=== PATIENT | male | born 1950 | race Caucasian/White ===

== ENCOUNTER → 2017-02-18 | Day surgery (SDC) | payer MEDICARE ==
[~2017-02-18] VITALS: Ht 180.3 cm; Wt 93.0 kg
[~2017-02-18] MED LIST: BUPIVACAINE HCL PF 0.5% 30 ML VIAL ONE; CARD4TAB2 PO; CEPH-460 PO; HYDR-3288 PO; IBUP-232 PO; LACTATED RINGER'S 1000 ML INJ 1,000 ML ONE; LEVA250T PO; LEVOFLOXACIN 500 MG PREMIX INJ 100 ML IV ONE; LIDOCAINE HCL 2% 50 ML VIAL ONE; MULTTAB67 PO; NEOMYCIN/POLYMYXIN 1 ML G.U. IRRIGANT TOPICAL ONE; NORC5TAB PO; OMEP20TA PO; PROPOFOL 200 MG/20 ML AMP IV ONE; ceFAZolin INJ 1,000 MG VIAL ONE
[2017-02-18 09:43] VITALS: BP 164/106; PULSE 63; RESP 20; TEMP 97.5; O2SAT 96
[2017-02-18 09:47] LABS: HEMATOCRIT 52.6 % (39.0-51.0); MEAN CELL VOLUME 89.5 FL (80.0-100.0); MEAN CORPUSCULAR HEMOGLOBIN 29.2 PG (27.0-34.0); MEAN CORPUSCULAR HGB CONC 32.6 % (32.0-36.0); PLATELET COUNT 176 TH/MM3 (150-450); RED BLOOD COUNT 5.88 MIL/MM3 (4.50-5.90); RED CELL DISTRIBUTION WIDTH 13.7 % (11.6-17.2); REVIEW FLAG FINAL; WHITE BLOOD COUNT 5.5 TH/MM3 (4.0-11.0)
[2017-02-18 11:45] VITALS: TEMP 98.3
[2017-02-18 12:35] VITALS: BP 133/79; PULSE 55; RESP 16; O2SAT 95
--- NOTE | 2017-02-18 12:37 | MP ---
cc: JEANMARIE PINEDA III, M.D. DATE OF SURGERY: 02/18/2017 PREOPERATIVE DIAGNOSIS Left carpal tunnel syndrome. POSTOPERATIVE DIAGNOSIS Left carpal tunnel syndrome. PROCEDURE Left open carpal tunnel release. SURGEON Jeanmarie Pineda III, MD INDICATION The patient was known to have a scratch and surrounding erythema on his right index finger in the pre-op holding area. He was scheduled for a right open carpal tunnel release but because of this wound and possible infection I cancelled this case. The patient then requested we proceed with left open carpal tunnel release if deemed possible as this was the next step in his treatment plan which would have been scheduled in four weeks. I thought this would be very reasonable and there was no evidence of any wound or infection in the left upper extremity, and therefore we proceeded in this fashion. DETAILS OF PROCEDURE The patient was brought to the operating room and placed supine on the operating table. After the correct site and side of surgery were verified by members of each team in the room multiple times including the patient and myself and after adequate preoperative markings and preoperative written consent were verified by everyone and after adequate IV sedation had been achieved, the left upper extremity was prepped and draped in traditional sterile surgical fashion. A 50/50 mixture of 2% plain lidocaine and 0.5% plain Marcaine was infiltrated in the skin and subcutaneous tissue at the base of the palm. The limb was exsanguinated using Jj wrap and a highly placed well-padded axillary tourniquet was inflated to 220 mmHg for a total of 10 minutes. A longitudinally oriented incision within the skin creases at the base of the palm was made and carried down through skin and subcutaneous tissue. The palmar fascia was retracted in opposite directions. The transverse carpal ligament was identified and divided in its midline from its proximal most to its distal most extents, completely freeing the carpal tunnel contents. The median nerve was visualized and appeared to be completely intact and in continuity but had an obvious rebound once the carpal tunnel was released. There were no other anatomic abnormalities identified. There was no evidence of any mass effect. A liter's worth of saline was then performed to irrigate out the wound was the skin edges were re-approximated using running 4-0 nylon suture. The hand and arm were thoroughly cleansed and dried. Betadine/Adaptic dressing was applied atop the wound followed by a bulky soft dressing. The axillary tourniquet was released and the hand and all the fingers became immediately soft, pink and warm and had brisk capillary refill of less than two seconds. The patient was awakened from anesthesia and transported to the post-anesthesia care unit awake and in stable condition at the end of the case. The sponge, needle and instrument counts were correct at the end of the case as reported by the nurses in the room. MD BESS Roblero III/FLORY /11:50 AM /12:17 PM
--- NOTE | 2017-02-19 17:41 | EKG ---
Date Performed: 02/18/2017 Time Performed: 09:46:18 PTAGE: 66 years EKG: Sinus bradycardia. Inferior infarct - age undetermined QRS changes V3/V4 may be due to LVH but cannot rule out anterior infarct Abnormal ECG PREVIOUS TRACING : 04/29/2011 13.08 Compared to prior tracing no significant change DOCTOR: Vaughn Chávez Interpretating Date/Time 02/19/2017 17:40:20
== END | disposition home or self-care (01) ==
LOC: PHSDC 08:34
PROVIDERS: ATTEND Orthopaedic Surgery Hand Surgery
DX: G56.02 Carpal tunnel syndrome, left upper limb (principal); I10 Essential (primary) hypertension; K21.9 Gastro-esophageal reflux disease without esophagitis; Z87.891 Personal history of nicotine dependence
CPT/HCPCS: 36415; 64721; 85027; 93005; J0690; J1956; J7120

== ENCOUNTER → 2017-03-04 | Day surgery (SDC) | payer MEDICARE ==
[~2017-03-04] VITALS: Ht 180.3 cm; Wt 93.0 kg
[~2017-03-04] MED LIST changes: +BUPIVACAINE HCL PF 0.5% 10 ML VIAL OTHER ONE; -BUPIVACAINE HCL PF 0.5% 30 ML VIAL ONE; -HYDR-3288 PO; -LEVA250T PO; -LEVOFLOXACIN 500 MG PREMIX INJ 100 ML IV ONE; -LIDOCAINE HCL 2% 50 ML VIAL ONE; +LIDOCAINE HCL PF 2% VIAL OTHER ONE; +MIDAZOLAM HCL 2 MG/2 ML VIAL ONE; +NEOMYCIN/POLYMYXIN 1 ML G.U. IRRIGANT IRRIGATION ONE; -NEOMYCIN/POLYMYXIN 1 ML G.U. IRRIGANT TOPICAL ONE; -PROPOFOL 200 MG/20 ML AMP IV ONE; +SODIUM CHLORIDE 0.9% INJ 100 ML ONE
[2017-03-04 11:07] VITALS: BP 143/97; PULSE 60; RESP 18; TEMP 97; O2SAT 95
[2017-03-04 13:12] VITALS: PULSE 64
--- NOTE | 2017-03-04 13:43 | MP ---
cc: JEANMARIE PINEDA III, M.D. DATE OF SURGERY 03/04/2017 PREOPERATIVE DIAGNOSIS Right carpal tunnel syndrome PROCEDURE Right open carpal tunnel release. SURGEON Jeanmarie Pineda III, MD PROCEDURE The patient was brought to the operating room and placed supine upon the operating table. After the correct site and side of the surgery were verified by the members of each team in the room multiple times including the patient and myself and, after adequate preoperative markings and preoperative written consent were verified by everyone and, after adequate preoperative time-out was performed to everyone's satisfaction, and after adequate IV sedation had been achieved, the right upper extremity was prepped and draped in the traditional sterile surgical fashion. A 50/50 mixture of 2% plain lidocaine and 0.5% plain Marcaine was infiltrated in the skin and subcutaneous tissue, into the carpal tunnel at the base of the palm. The limb was exsanguinated with an Jj wrap, then a highly placed, well-padded axillary tourniquet was inflated to 220 mmHg for a total of 9 minutes. A longitudinally oriented incision at the base of the palm was made and carried down through the skin and subcutaneous tissue within the skin creases. Blunt dissection was performed. Bipolar electrocautery was used as needed. The palmar fascia was retracted in opposite directions and the transverse carpal ligament was identified and transected in its midline in its entirety from its proximal-most to its distal-most extent, completely freeing the carpal tunnel contents which appeared to have a rebound once this was done. There was no other mass effect or anatomic abnormality identified. Thorough irrigation was performed with saline irrigation and the skin edges were reapproximated using interrupted and running 4-0 nylon sutures. The hand and arm were thoroughly cleansed and dried, Betadine and Adaptic dressing was applied on top of the wound, followed by a bulky soft dressing, followed by the usual circumferential dressing. The patient was awakened from anesthesia and transported to the Post-Anesthesia Care Unit awake and in stable condition at the end of the case. Sponge, needle and instrument counts were correct at the end of the case as reported by the nurses in the room. MD BESS Roblero III/JOHANNA /1:23 PM /1:30 PM
[2017-03-04 14:00] VITALS: BP 140/92; PULSE 60; RESP 16; TEMP 98; O2SAT 97
== END | disposition home or self-care (01) ==
LOC: PHSDC 10:28
PROVIDERS: ATTEND Orthopaedic Surgery Hand Surgery
DX: G56.01 Carpal tunnel syndrome, right upper limb (principal); I10 Essential (primary) hypertension; K21.9 Gastro-esophageal reflux disease without esophagitis; Z86.718 Personal history of other venous thrombosis and embolism
CPT/HCPCS: 64721; J0690; J2250; J7120